=== PATIENT | female | born 1980 | race American Indian/Alaskan Native ===

== ENCOUNTER 2016-10-29 23:52 | Emergency (ER) | payer SELFPAY ==
[2016-10-30] MEDS ORDERED: NACL 0.9% 1000 ML 1,000 ML IV ONE (02:24)
[2016-10-30] MEDS ORDERED: VANCOMYCIN VIAL IV ONE (02:24)
[2016-10-30] MEDS ORDERED: MORPHINE IV ONE (02:25)
[2016-10-30] MEDS ORDERED: VANCOMYCIN PHARMACY TO DOSE IV SCH (03:00)
[2016-10-30] MEDS ORDERED: VANCOMYCIN 1,250 MG in NACL 0.9% 250ML 250 ML IV ONE (03:00)
[2016-10-30 03:10] LABS: Basophils % (Auto) 0.6 % (0.0-1.8); Eosinophils % (Auto) 0.6 % (0.0-4.3); Hematocrit 29.6 % (30.3-42.9); Mean Corpuscular HGB Conc 31 % (30-34); Platelet Count 183 K/mm3 (140-440); Red Blood Count 4.29 M/mm3 (3.65-5.03); Red Cell Distribution Width 17.3 % (13.2-15.2); White Blood Count 3.6 K/mm3 (4.5-11.0)
[2016-10-30 03:14] LABS: Mean Corpuscular Hemoglobin 21 pg (28-32); Mean Corpuscular Volume 69 fl (79-97)
[2016-10-30 03:18] LABS: Anion Gap 18 mmol/L; Blood Urea Nitrogen 16 mg/dL (7-17); Calcium 9.2 mg/dL (8.4-10.2); Carbon Dioxide 22 mmol/L (22-30); Chloride 100.4 mmol/L (98-107); Glucose 87 mg/dL (65-100); Sodium 136 mmol/L (137-145)
--- NOTE | 2016-10-30 03:19 | Emergency Department Report ---
ED ENT HPI - General Chief complaint: Earache Stated complaint: EAR PAIN Time Seen by Provider: 10/30/16 01:18 Source: patient Mode of arrival: Ambulatory Limitations: No Limitations - History of Present Illness Initial comments: 36-year-old female past medical history HIV-positive noncompliant with her HIV medicines presents with complaint of one week of worsening left-sided headache left-sided earache. Patient states that she is experiencing severe pain in her left ear canal has noticed some swelling and is having pain behind her ear. Denies any neck pain no photo or phonophobia no nausea or vomiting. Subjective chills. Patient states she stopped taking her HIV medicines several months ago cannot give me a clear reason why. Patient has not been following up for primary care. States she had been putting [id number] ear drops in her ear with minimal to no relief of her pain. Patient is awake alert and oriented 3 appears uncomfortable indicating that she has left-sided earache MD complaint: ear pain Onset/Timin -: week(s) Location: L ear Severity: moderate Severity scale (0 -10): 6 Quality: sharp Consistency: constant Associated Symptoms: tinnitus - Related Data Previous Rx's Medication Instructions Recorded Last Taken Type Amoxicillin/K Clav Tab [Augmentin 1 tab PO Q12HR #20 tab 10/30/16 Unknown Rx 875 mg] Ciprofloxacin HCl [Ciprofloxacin 500 mg PO Q12HR #20 tab 10/30/16 Unknown Rx TAB] HYDROcodone/APAP 5-325 [[place] 1 each PO Q6HR PRN #15 tablet 10/30/16 Unknown Rx 5/325] Ofloxacin 0.3% [Floxin Otic] 10 ml OT BID #1 bottle 10/30/16 Unknown Rx Allergies Allergy/AdvReac Type Severity Reaction Status Date / Time No Known Allergies Allergy Unverified 10/29/16 23:57 ED Dental HPI - General Chief complaint: Earache Stated complaint: EAR PAIN Time Seen by Provider: 10/30/16 01:18 Source: patient Mode of arrival: Ambulatory Limitations: No Limitations - Related Data Previous Rx's Medication Instructions Recorded Last Taken Type Amoxicillin/K Clav Tab [Augmentin 1 tab PO Q12HR #20 tab 10/30/16 Unknown Rx 875 mg] Ciprofloxacin HCl [Ciprofloxacin 500 mg PO Q12HR #20 tab 10/30/16 Unknown Rx TAB] HYDROcodone/APAP 5-325 [[place] 1 each PO Q6HR PRN #15 tablet 10/30/16 Unknown Rx 5/325] Ofloxacin 0.3% [Floxin Otic] 10 ml OT BID #1 bottle 10/30/16 Unknown Rx Allergies Allergy/AdvReac Type Severity Reaction Status Date / Time No Known Allergies Allergy Unverified 10/29/16 23:57 ED Review of Systems ROS: Stated complaint: EAR PAIN Other details as noted in HPI Constitutional: other (patient is HIV positive). denies: chills, fever Eyes: denies: eye pain, eye discharge, vision change ENT: ear pain (1 week of left-sided earache). denies: throat pain Respiratory: denies: cough, shortness of breath, wheezing Cardiovascular: denies: chest pain, palpitations Endocrine: no symptoms reported Gastrointestinal: denies: abdominal pain, nausea, diarrhea Genitourinary: denies: urgency, dysuria, discharge Musculoskeletal: denies: back pain, joint swelling, arthralgia Skin: denies: rash, lesions Neurological: denies: headache, weakness, paresthesias Psychiatric: denies: anxiety, depression Hematological/Lymphatic: denies: easy bleeding, easy bruising ED Past Medical Hx - Past Medical History Previous Medical History?: Yes Hx HIV: Yes - Surgical History Past Surgical History?: Yes Additional Surgical History: C-Sect X1 - Social History Smoking Status: Current Every Day Smoker Substance Use Type: None - Medications Home Medications: Home Medications Medication Instructions Recorded Confirmed Last Taken Type Amoxicillin/K Clav Tab [Augmentin 1 tab PO Q12HR #20 tab 10/30/16 Unknown Rx 875 mg] Ciprofloxacin HCl [Ciprofloxacin 500 mg PO Q12HR #20 tab 10/30/16 Unknown Rx TAB] HYDROcodone/APAP 5-325 [[place] 1 each PO Q6HR PRN #15 tablet 10/30/16 Unknown Rx 5/325] Ofloxacin 0.3% [Floxin Otic] 10 ml OT BID #1 bottle 10/30/16 Unknown Rx ED Physical Exam - General Limitations: No Limitations General appearance: alert, in no apparent distress - Head Head exam: Present: atraumatic, normocephalic - Eye Eye exam: Present: normal appearance, PERRL, EOMI - ENT ENT exam: Present: mucous membranes moist - Expanded ENT Exam Expanded TM/Canal exam: Erythema: Left TM (left ear canal is swollen and slightly indurated, tympanic membrane only slightly visible), Bulging: Left TM, Effusion : Left TM, Mastoid Tenderness: Left TM (patient has left-sided mastoid tenderness on clinical palpation) - Neck Neck exam: Present: normal inspection - Respiratory Respiratory exam: Present: normal lung sounds bilaterally. Absent: respiratory distress - Cardiovascular Cardiovascular Exam: Present: regular rate, normal rhythm. Absent: systolic murmur, diastolic murmur, rubs, gallop - GI/Abdominal GI/Abdominal exam: Present: soft, normal bowel sounds - Extremities Exam Extremities exam: Present: normal inspection - Back Exam Back exam: Present: normal inspection - Neurological Exam Neurological exam: Present: alert, oriented X3 - Psychiatric Psychiatric exam: Present: normal affect, normal mood - Skin Skin exam: Present: warm, dry, intact, normal color. Absent: rash ED Course Vital Signs 10/29/16 10/30/16 23:58 04:30 Temperature 97.6 F 97.9 F Pulse Rate 80 74 Respiratory 18 18 Rate Blood Pressure 134/75 Blood Pressure 97/57 [Left] O2 Sat by Pulse 99 98 Oximetry ED Medical Decision Making - Lab Data Result diagrams: 10/30/16 02:49 10/30/16 02:49 - Medical Decision Making A/P: left sided earache, left ear cellulitis/ otitis media/externa, perichondritis 1- I discussed case with Dr. Dinh, Dr. Kong (hospitalist) and [facility] completion supervisor political consultant 2- pts labs are not significantly abnormal, Ct w/ contrast not consistent with mastoiditis 3- As per ENT consultation without radiographic findings pt highly unlikely to have mastoiditis, recommending pseudomonal coverage and IV ABX given pts HIV status 4- pt received doses of vanomycin and cefepime while in ED 5- significant improvement of pain clinically on exam. 6- I will discharge the patient with 10 day course of augmentin and ciprofloxacin, this will cover gram+/- and pseudomonas. Topical ofloxacin drops 7- short course norco and naproxen 8- f/u with ENT and primary care 9- I gave pt strict instructions to return to the ED if her symptoms worsen, if she develops fever, chills, nausea, vomiting, discharge from the ear. I advised pt to return to the ED in 48-72 hours if she experiences worsening symptoms despite antibiotic use. i explained and stressed the importance of f/u with ENT to the pt. Pt expressed understanding of her diagnosis and importance of antibiotic use and f/u Critical care attestation.: If time is entered above; I have spent that time in minutes in the direct care of this critically ill patient, excluding procedure time. ED Disposition Clinical Impression: Perichondritis of left ear Otitis externa of left ear Qualifiers: Otitis externa type: diffuse Chronicity: acute Qualified Code(s): H60.312 - Diffuse otitis externa, left ear Otitis media Qualifiers: Otitis media type: suppurative Laterality: left Chronicity: acute Disposition: DISCHARGED TO HOME OR SELFCARE Is pt being admited?: No Does the pt Need Aspirin: No Condition: Stable Instructions: Otitis Externa (ED), Otitis Media (ED), Earache (ED) Additional Instructions: pt advised to call for f/u with ENT pt advised to return to ED in 48-72 hours if symptoms worsen Prescriptions: Amoxicillin/K Clav Tab [Augmentin 875 mg] 1 tab PO Q12HR #20 tab Ciprofloxacin HCl [Ciprofloxacin TAB] 500 mg PO Q12HR #20 tab HYDROcodone/APAP 5-325 [Penelope 5/325] 1 each PO Q6HR PRN #15 tablet PRN Reason: Pain Ofloxacin 0.3% [Floxin Otic] 10 ml OT BID #1 bottle Referrals: [facility] [Outside] - 3-5 Days [facility] [Provider Group] - 3-5 [facility] - 3-5 Days [facility] [Provider Group] - 3-5 Days BRIGIDO SIGALA MD [Staff Physician] - 3-5 Days Forms: Work/School Release Form(ED) Time of Disposition: 05:35
[2016-10-30] MEDS ORDERED: NACL ONE (03:27)
[2016-10-30 03:37] LABS: Erythrocyte Sedimentation Rate 37 mm/Hr (0-20)
--- NOTE | 2016-10-30 04:02 | Cat Scan Report ---
FINAL REPORT PROCEDURE: CT ORBIT/EAR/FOSSA W CON TECHNIQUE: Computerized axial tomography of the orbits was performed following the IV injection of iodinated nonionic contrast. HISTORY: ? left side mastoiditis, HIV , mastoid tenderness COMPARISON: No prior studies are available for comparison. FINDINGS: Bones and sinuses: There is mild opacification of the ethmoid and maxillary sinuses. Globes: Normal. Extraocular muscles: Normal. Optic nerves: Normal. Lacrimal glands: Normal. Abnormal enhancement: None. Other: The mastoid air cells are clear. Minimal cerumen identified in the external auditory canals. IMPRESSION: Mild opacification of the ethmoid and maxillary sinuses. The remainder of the study is normal.
[2016-10-30] MEDS ORDERED: MAXIPIME/NS 2 GM/100 ML 2 GM/100 ML BAG IV ONE (06:00)
[2016-10-30] MEDS ORDERED: NORCO 5/325 PO ONE (06:00)
[2016-10-30 07:03] VITALS: BP 114/73
[2016-10-30] MEDS ORDERED: VANCOMYCIN 750 MG in NACL 0.9% 250ML 250 ML IV SCH (12:00)
== END 2016-10-30 07:03 | disposition home or self-care (01) ==
LOC: ED 23:52
DX: H60.312 Diffuse otitis externa, left ear (principal); H61.002 Unspecified perichondritis of left external ear; F17.200 Nicotine dependence, unspecified, uncomplicated
CPT/HCPCS: 36415; 70481; 80048; 82140; 84703; 85025; 85652; 86140; 87040; 96361; 96365; 96367; 96375; 99284; J0692; J2270; J3370; J7030; J7050; Q9967

== ENCOUNTER 2017-03-24 19:34 | Emergency (ER) | payer SELFPAY ==
[2017-03-24] MEDS ORDERED: TYLENOL PO ONE (19:56)
[2017-03-24 20:25] LABS: Basophils % (Auto) 0.7 % (0.0-1.8); Eosinophils % (Auto) 0.1 % (0.0-4.3); Hematocrit 25.2 % (30.3-42.9); Hemoglobin 8.9 gm/dl (10.1-14.3); Mean Corpuscular HGB Conc 35 % (30-34); Mean Corpuscular Volume 73 fl (79-97); Platelet Count 184 K/mm3 (140-440); Red Blood Count 3.48 M/mm3 (3.65-5.03)
[2017-03-24 20:35] LABS: Mean Corpuscular Hemoglobin 26 pg (28-32)
[2017-03-24 20:41] LABS: Blood Urea Nitrogen 14 mg/dL (7-17); Calcium 8.9 mg/dL (8.4-10.2); Carbon Dioxide 19 mmol/L (22-30); Chloride 98.3 mmol/L (98-107); Glucose 109 mg/dL (65-100); Potassium 3.9 mmol/L (3.6-5.0)
[2017-03-24 20:54] LABS: Anion Gap 21 mmol/L; Sodium 134 mmol/L (137-145)
[2017-03-24 21:50] LABS: Bilirubin,Urine NEG (Negative); Blood,Urine SM (Negative); Ketones,Urine NEG (Negative); Leukocyte Esterase,Urine SM (Negative); Mucus,Urine FEW /HPF; Nitrite,Urine NEG (Negative); Protein,Urine <15 mg/dL mg/dL (Negative); Urobilinogen,Urine < 2.0 mg/dL (<2.0)
[2017-03-25] MEDS ORDERED: ROCEPHIN/NS 1 GM/50 ML 1 GM/50 ML BAG IV ONE (03:00)
[2017-03-25] MEDS ORDERED: NACL 0.9% 1000 ML 1,000 ML IV ONE (03:00)
[2017-03-25] MEDS ORDERED: MOTRIN PO ONE (03:36)
--- NOTE | 2017-03-25 04:05 | XRay Report ---
FINAL REPORT EXAM: XR CHEST ROUTINE 2V HISTORY: cough productive fever TECHNIQUE: Two views of the chest were obtained. There are no previous studies available for comparison. FINDINGS: The heart size and mediastinum appear normal. The lungs are clear. Pleural fluid is not seen. The bones and soft tissues are well maintained. IMPRESSION: Within normal limits.
--- NOTE | 2017-03-25 05:16 | Emergency Department Report ---
Upper Respiratory HPI - HPI Chief Complaint: Upper Respiratory Infection Stated Complaint: FEVER, HEADACHE, CHEST PAIN,BODY ACHE Time Seen by Provider: 03/25/17 02:58 URI Symptoms: Rhinorrhea: Yes, Sore Throat: Yes, Ear Pain: Yes, Cough: Yes, Shortness of Breath: No, Sick Contacts: No, Unable to Take Fluids: No, Urine Output Abnormal: No, Listless Behavior: No - Home Meds and Allergies Home Medications: Previous Rx's Medication Instructions Recorded Last Taken Type Amoxicillin/K Clav Tab [Augmentin 1 tab PO Q12HR #20 tab 10/30/16 Unknown Rx 875 mg] Ciprofloxacin HCl [Ciprofloxacin 500 mg PO Q12HR #20 tab 10/30/16 Unknown Rx TAB] HYDROcodone/APAP 5-325 [[place] 1 each PO Q6HR PRN #15 tablet 10/30/16 Unknown Rx 5/325] Ofloxacin 0.3% [Floxin Otic] 10 ml OT BID #1 bottle 10/30/16 Unknown Rx ALBUTEROL Inhaler [ProAir HFA 2 puff IH QID PRN #1 inhalation 03/25/17 Unknown Rx Inhaler] Azithromycin [Zithromax Z-EDWARD] 250 mg PO DAILY #6 tablet 03/25/17 Unknown Rx Fluticasone [Flonase] 1 spray NS QDAY #1 bottle 03/25/17 Unknown Rx Ibuprofen [Motrin 800 MG tab] 800 mg PO Q8HR PRN #30 tablet 03/25/17 Unknown Rx Allergies/Adverse Reactions: Allergies Allergy/AdvReac Type Severity Reaction Status Date / Time No Known Allergies Allergy Unverified 10/29/16 23:57 ED Review of Systems ROS: Stated complaint: FEVER, HEADACHE, CHEST PAIN,BODY ACHE Other details as noted in HPI Constitutional: chills, malaise. denies: fever Eyes: denies: eye pain, eye discharge, vision change ENT: throat pain, congestion. denies: ear pain, hearing loss, epistaxis Respiratory: cough, wheezing. denies: orthopnea, shortness of breath Cardiovascular: denies: chest pain, palpitations Endocrine: no symptoms reported Gastrointestinal: denies: abdominal pain, nausea, diarrhea Genitourinary: denies: urgency, dysuria, discharge Musculoskeletal: denies: back pain, joint swelling, arthralgia Skin: denies: rash, lesions Neurological: denies: headache, weakness, paresthesias Psychiatric: denies: anxiety, depression Hematological/Lymphatic: denies: easy bleeding, easy bruising ED Past Medical Hx - Past Medical History Previous Medical History?: Yes Hx HIV: Yes - Surgical History Past Surgical History?: Yes Additional Surgical History: C-Sect X1 - Social History Smoking Status: Never Smoker Substance Use Type: None - Medications Home Medications: Home Medications Medication Instructions Recorded Confirmed Last Taken Type Amoxicillin/K Clav Tab [Augmentin 1 tab PO Q12HR #20 tab 10/30/16 Unknown Rx 875 mg] Ciprofloxacin HCl [Ciprofloxacin 500 mg PO Q12HR #20 tab 10/30/16 Unknown Rx TAB] HYDROcodone/APAP 5-325 [[place] 1 each PO Q6HR PRN #15 tablet 10/30/16 Unknown Rx 5/325] Ofloxacin 0.3% [Floxin Otic] 10 ml OT BID #1 bottle 10/30/16 Unknown Rx ALBUTEROL Inhaler [ProAir HFA 2 puff IH QID PRN #1 inhalation 03/25/17 Unknown Rx Inhaler] Azithromycin [Zithromax Z-EDWARD] 250 mg PO DAILY #6 tablet 03/25/17 Unknown Rx Fluticasone [Flonase] 1 spray NS QDAY #1 bottle 03/25/17 Unknown Rx Ibuprofen [Motrin 800 MG tab] 800 mg PO Q8HR PRN #30 tablet 03/25/17 Unknown Rx ED Bronchiolitis Physical Exam - Exam General: Vital signs noted. No distress. Alert and acting appropriately. HEENT: Yes Pharyngeal Erythema, Yes Rhinorrhea, No Conjuctival Injection, No Dry Mucous Membranes Ear: Left TM Erythema, Neither TM Bulge, Neither EAC Discharge Neck: Yes Adenopathy, No Rigidity Lungs: Yes Clear Lung Sounds, Yes Good Air Exchange, Yes Cough, No Wheezes, No Stridor, No Nasal Flaring, No Retractions Heart: Yes Regular, No Murmur Abdomen: No Tenderness, No Peritoneal Signs, No Normal Bowel Sounds Skin: No Rash, No Eczema Neurologic: Alert and oriented, no deficits. Musculoskeletal: Unremarkable. ED Bronchiolitis Tests - Testing Testing: CXR: Normal/Negative Treatments - Treaments Treatment: Improved Albuterol ED Physical Exam - General Limitations: No Limitations ED Course Vital Signs 09/29/17 09/30/17 09/30/17 19:47 03:41 03:44 Temperature 100.6 F H 99.7 F H Pulse Rate 109 H 110 H Respiratory 22 18 18 Rate Blood Pressure 138/86 Blood Pressure 125/74 [Left] O2 Sat by Pulse 100 97 Oximetry ED Medical Decision Making - Lab Data Result diagrams: 03/24/17 20:12 03/24/17 20:12 - EKG Data EKG shows normal: axis, intervals, QRS complexes, ST-T waves Rate: tachycardia - EKG Data When compared to previous EKG there are: previous EKG unavailable Interpretation: normal EKG - Radiology Data Radiology results: report reviewed normal chest xray no infiltrates no opacities - Medical Decision Making pt is a 36 female HIV pos, who presents for generalized bodyache cough productive white, and generalized malaise, pt endorses intermittent fever no n/ v , no e at time. symptoms improved by nothing exam: patient is a/ox 3 ambulatory gait steady , ent: left ear erythema , nose: boggy bilater turbinater erythema no phayrnx: moderate eythema no exudate no lesion, uvula midline, no stidor, lungs clear bilat no wheezing, labs noted for: UA: normal CBC: normal , CMP normal , CXR: normal infiltrates no capacities, pt rx: NS 1000cc, rocephin 1 gm ivpb , pt advises symptoms are improve will dc to self with Azithromycin, albuterol inhaler, ibuprofen, Flonase, pt will follow up with IDP Doctor Lisseth Harvey in 2 days pt given strict instructions to return to emergency if symptoms worsen pt verbalized agreement and understanding of discharge plan. pt is currently a/o x 3 ambulatory gait steady with nad at this time. Critical care attestation.: If time is entered above; I have spent that time in minutes in the direct care of this critically ill patient, excluding procedure time. ED Disposition Clinical Impression: Bronchitis URI (upper respiratory infection) Qualifiers: URI type: acute nasopharyngitis (common cold) Qualified Code(s): J00 - Acute nasopharyngitis [common cold] Disposition: DC-01 TO HOME OR SELFCARE Is pt being admited?: No Does the pt Need Aspirin: No Condition: Good Instructions: Chronic Bronchitis (ED) Prescriptions: ALBUTEROL Inhaler [ProAir HFA Inhaler] 2 puff IH QID PRN #1 inhalation PRN Reason: Shortness Of Breath Azithromycin [Zithromax Z-EDWARD] 250 mg PO DAILY #6 tablet Fluticasone [Flonase] 1 spray NS QDAY #1 bottle Ibuprofen [Motrin 800 MG tab] 800 mg PO Q8HR PRN #30 tablet PRN Reason: Pain Referrals: PRIMARY CARE, [Primary Care Provider] - 3-5 Days Forms: Work/School Release Form(ED) Time of Disposition: 05:37
[2017-03-25 05:51] VITALS: BP 92/50
== END 2017-03-25 05:50 | disposition home or self-care (01) ==
LOC: ED 19:34
DX: J00 Acute nasopharyngitis [common cold] (principal); J40 Bronchitis, not specified as acute or chronic; Z21 Asymptomatic human immunodeficiency virus [HIV] infection status
CPT/HCPCS: 36415; 71020; 80048; 81001; 85025; 93005; 93010; 96365; 99284; J0696; J7030

== ENCOUNTER 2017-04-18 13:29 | Emergency (ER) | payer BC, OTHER ==
[2017-04-18 13:39] VITALS: BP 124/68
--- NOTE | 2017-04-18 13:54 | Emergency Department Report ---
ED ENT HPI - General Chief complaint: Earache Stated complaint: BILAT EAR PAIN/DRAINAGE Time Seen by Provider: 04/18/17 13:49 Source: patient Mode of arrival: Ambulatory Limitations: No Limitations - History of Present Illness Initial comments: patient is a 36 y/o female who presents due to bilateral ear pain x 1 day. Patient states that she noticed drainage from the bilateral ears. Patient denies any fever or chill, patient denies any injury to her ears. MD complaint: ear pain Onset/Timin -: days(s) Location: R ear, L ear Severity: severe Quality: aching Consistency: constant Improves with: none Worsens with: none Associated Symptoms: discharge from ear. denies: fever - Related Data Previous Rx's Medication Instructions Recorded Last Taken Type Amoxicillin/K Clav Tab [Augmentin 1 tab PO Q12HR #20 tab 10/30/16 Unknown Rx 875 mg] Ciprofloxacin HCl [Ciprofloxacin 500 mg PO Q12HR #20 tab 10/30/16 Unknown Rx TAB] HYDROcodone/APAP 5-325 [[place] 1 each PO Q6HR PRN #15 tablet 10/30/16 Unknown Rx 5/325] Ofloxacin 0.3% [Floxin Otic] 10 ml OT BID #1 bottle 10/30/16 Unknown Rx ALBUTEROL Inhaler [ProAir HFA 2 puff IH QID PRN #1 inhalation 03/25/17 Unknown Rx Inhaler] Azithromycin [Zithromax Z-EDWARD] 250 mg PO DAILY #6 tablet 03/25/17 Unknown Rx Fluticasone [Flonase] 1 spray NS QDAY #1 bottle 03/25/17 Unknown Rx Ibuprofen [Motrin 800 MG tab] 800 mg PO Q8HR PRN #30 tablet 03/25/17 Unknown Rx Ibuprofen 800 mg PO Q8HR PRN #30 tablet 04/18/17 Unknown Rx Neomy/Polymyx B/Hc (Otic) Soln 4 drops OTIC TID #1 bottle 04/18/17 Unknown Rx [Cortisporin (Otic) Soln] Allergies Allergy/AdvReac Type Severity Reaction Status Date / Time No Known Allergies Allergy Unverified 10/29/16 23:57 ED Dental HPI - General Chief complaint: Earache Stated complaint: BILAT EAR PAIN/DRAINAGE Time Seen by Provider: 04/18/17 13:49 Source: patient Mode of arrival: Ambulatory Limitations: No Limitations - Related Data Previous Rx's Medication Instructions Recorded Last Taken Type Amoxicillin/K Clav Tab [Augmentin 1 tab PO Q12HR #20 tab 10/30/16 Unknown Rx 875 mg] Ciprofloxacin HCl [Ciprofloxacin 500 mg PO Q12HR #20 tab 10/30/16 Unknown Rx TAB] HYDROcodone/APAP 5-325 [[place] 1 each PO Q6HR PRN #15 tablet 10/30/16 Unknown Rx 5/325] Ofloxacin 0.3% [Floxin Otic] 10 ml OT BID #1 bottle 10/30/16 Unknown Rx ALBUTEROL Inhaler [ProAir HFA 2 puff IH QID PRN #1 inhalation 03/25/17 Unknown Rx Inhaler] Azithromycin [Zithromax Z-EDWARD] 250 mg PO DAILY #6 tablet 03/25/17 Unknown Rx Fluticasone [Flonase] 1 spray NS QDAY #1 bottle 03/25/17 Unknown Rx Ibuprofen [Motrin 800 MG tab] 800 mg PO Q8HR PRN #30 tablet 03/25/17 Unknown Rx Ibuprofen 800 mg PO Q8HR PRN #30 tablet 04/18/17 Unknown Rx Neomy/Polymyx B/Hc (Otic) Soln 4 drops OTIC TID #1 bottle 04/18/17 Unknown Rx [Cortisporin (Otic) Soln] Allergies Allergy/AdvReac Type Severity Reaction Status Date / Time No Known Allergies Allergy Unverified 10/29/16 23:57 ED Review of Systems ROS: Stated complaint: BILAT EAR PAIN/DRAINAGE Other details as noted in HPI Comment: All other systems reviewed and negative Constitutional: no symptoms reported. denies: chills, diaphoresis, fever, malaise, weakness ENT: ear pain. denies: throat pain, dental pain, hearing loss, epistaxis, congestion, other Respiratory: no symptoms reported ED Past Medical Hx - Past Medical History Previous Medical History?: Yes Hx HIV: Yes - Surgical History Past Surgical History?: Yes Additional Surgical History: C-Sect X1 - Social History Smoking Status: Current Every Day Smoker Substance Use Type: None - Medications Home Medications: Home Medications Medication Instructions Recorded Confirmed Last Taken Type Amoxicillin/K Clav Tab [Augmentin 1 tab PO Q12HR #20 tab 10/30/16 Unknown Rx 875 mg] Ciprofloxacin HCl [Ciprofloxacin 500 mg PO Q12HR #20 tab 10/30/16 Unknown Rx TAB] HYDROcodone/APAP 5-325 [[place] 1 each PO Q6HR PRN #15 tablet 10/30/16 Unknown Rx 5/325] Ofloxacin 0.3% [Floxin Otic] 10 ml OT BID #1 bottle 10/30/16 Unknown Rx ALBUTEROL Inhaler [ProAir HFA 2 puff IH QID PRN #1 inhalation 03/25/17 Unknown Rx Inhaler] Azithromycin [Zithromax Z-EDWARD] 250 mg PO DAILY #6 tablet 03/25/17 Unknown Rx Fluticasone [Flonase] 1 spray NS QDAY #1 bottle 03/25/17 Unknown Rx Ibuprofen [Motrin 800 MG tab] 800 mg PO Q8HR PRN #30 tablet 03/25/17 Unknown Rx Ibuprofen 800 mg PO Q8HR PRN #30 tablet 04/18/17 Unknown Rx Neomy/Polymyx B/Hc (Otic) Soln 4 drops OTIC TID #1 bottle 04/18/17 Unknown Rx [Cortisporin (Otic) Soln] ED Physical Exam - General Limitations: No Limitations General appearance: alert, in no apparent distress - Head Head exam: Present: atraumatic, normocephalic - Expanded ENT Exam Expanded TM/Canal exam: Canal Discharge: Left TM, Canal Tenderness: Right TM, Left TM - Neurological Exam Neurological exam: Present: alert, oriented X3 - Psychiatric Psychiatric exam: Present: normal affect, normal mood - Skin Skin exam: Present: warm, dry, intact ED Course Vital Signs 04/18/17 13:37 Temperature 98.5 F Pulse Rate 94 H Respiratory 16 Rate Blood Pressure 124/68 O2 Sat by Pulse 100 Oximetry ED Medical Decision Making - Medical Decision Making patient was in NAD, patient had drainage in the left ear canal with canal swelling, left ear TM was not visualized due to swelling and drainage. right ear canal was normal, normal right TM. patient was prescribed cortisporin ear drops and was told to follow up with an ENT specialist if symptoms did not improve. - Differential Diagnosis otits externa, otitis media, mastoiditis. Critical care attestation.: If time is entered above; I have spent that time in minutes in the direct care of this critically ill patient, excluding procedure time. ED Disposition Clinical Impression: Otitis externa Qualifiers: Otitis externa type: unspecified type Chronicity: acute Laterality: left Qualified Code(s): H60.502 - Unspecified acute noninfective otitis externa, left ear Disposition: TO HOME OR SELFCARE Is pt being admited?: No Does the pt Need Aspirin: No Condition: Good Instructions: Otitis Externa (ED) Additional Instructions: apply cortisporin in left ear, apply 4 drops three times a day. take ibuprofen as prescribed Prescriptions: Ibuprofen 800 mg PO Q8HR PRN #30 tablet PRN Reason: Pain Neomy/Polymyx B/Hc (Otic) Soln [Cortisporin (Otic) Soln] 4 drops OTIC TID #1 bottle Referrals: PRIMARY CARE, [Primary Care Provider] - 3-5 Days Time of Disposition: 13:55
== END 2017-04-18 15:08 | disposition home or self-care (01) ==
LOC: ED 13:29
DX: H60.502 Unspecified acute noninfective otitis externa, left ear (principal); F17.200 Nicotine dependence, unspecified, uncomplicated
CPT/HCPCS: 99282

== ENCOUNTER 2017-05-30 12:14 | Emergency (ER) | payer BC ==
--- NOTE | 2017-05-30 16:28 | Emergency Department Report ---
ED ENT HPI - General Chief complaint: Earache Stated complaint: BILATERAL EAR PAIN Time Seen by Provider: 05/30/17 14:19 Source: patient Mode of arrival: Ambulatory Limitations: No Limitations - History of Present Illness Initial comments: This is a 36-year-old female nontoxic, well nourished in appearance, no acute signs of distress presents to the ED with c/o of chronic intermittent bilateral ear pain. Patient stated she was seen in the ED 2 times before and was diagnosed with otitis media and externa and recevied antibiotics with symptoms resolved. Patient stated she did follow up with ENT doctor which patient stated ENT doctor stated the symptoms have improved. Patient today presents again with similar symptoms of left ear discharge and pain and right ear ache. Patient denies any decreased hearing, fever, chills, nausea, vomiting, chest pain or shortness of breath. Denies headache or stiff neck. Patient denies any allergies. PMH includes HIV. Patient stated she is not complaint with her HIV medications. MD complaint: ear pain -: days(s) (1) Location: R ear, L ear Severity: mild Severity scale (0 -10): 8 Quality: aching Consistency: constant Improves with: none Worsens with: none Associated Symptoms: discharge from ear. denies: fever, cough, gum swelling, toothache, pain with swallowing, sore throat, tinnitus, hearing loss, rhinorrhea - Related Data Previous Rx's Medication Instructions Recorded Last Taken Type Amoxicillin/K Clav Tab [Augmentin 1 tab PO Q12HR #20 tab 10/30/16 Unknown Rx 875 mg] Ciprofloxacin HCl [Ciprofloxacin 500 mg PO Q12HR #20 tab 10/30/16 Unknown Rx TAB] HYDROcodone/APAP 5-325 [[place] 1 each PO Q6HR PRN #15 tablet 10/30/16 Unknown Rx 5/325] Ofloxacin 0.3% [Floxin Otic] 10 ml OT BID #1 bottle 10/30/16 Unknown Rx ALBUTEROL Inhaler [ProAir HFA 2 puff IH QID PRN #1 inhalation 03/25/17 Unknown Rx Inhaler] Azithromycin [Zithromax Z-EDWARD] 250 mg PO DAILY #6 tablet 03/25/17 Unknown Rx Fluticasone [Flonase] 1 spray NS QDAY #1 bottle 03/25/17 Unknown Rx Ibuprofen [Motrin 800 MG tab] 800 mg PO Q8HR PRN #30 tablet 03/25/17 Unknown Rx Ibuprofen 800 mg PO Q8HR PRN #30 tablet 04/18/17 Unknown Rx Neomy/Polymyx B/Hc (Otic) Soln 4 drops OTIC TID #1 bottle 04/18/17 Unknown Rx [Cortisporin (Otic) Soln] Amoxicillin/K Clav Tab [Augmentin 1 tab PO Q12HR #20 tab 05/30/17 Unknown Rx 875 mg] Ofloxacin 0.3% [Floxin Otic] 10 ml OT BID 7 Days bottle 05/30/17 Unknown Rx Sulfamethoxazole/Trimethoprim 1 each PO BID #14 tablet 05/30/17 Unknown Rx [Bactrim DS TAB] Allergies Allergy/AdvReac Type Severity Reaction Status Date / Time No Known Allergies Allergy Unverified 10/29/16 23:57 ED Dental HPI - General Chief complaint: Earache Stated complaint: BILATERAL EAR PAIN Time Seen by Provider: 05/30/17 14:19 Source: patient Mode of arrival: Ambulatory Limitations: No Limitations - Related Data Previous Rx's Medication Instructions Recorded Last Taken Type Amoxicillin/K Clav Tab [Augmentin 1 tab PO Q12HR #20 tab 10/30/16 Unknown Rx 875 mg] Ciprofloxacin HCl [Ciprofloxacin 500 mg PO Q12HR #20 tab 10/30/16 Unknown Rx TAB] HYDROcodone/APAP 5-325 [[place] 1 each PO Q6HR PRN #15 tablet 10/30/16 Unknown Rx 5/325] Ofloxacin 0.3% [Floxin Otic] 10 ml OT BID #1 bottle 10/30/16 Unknown Rx ALBUTEROL Inhaler [ProAir HFA 2 puff IH QID PRN #1 inhalation 03/25/17 Unknown Rx Inhaler] Azithromycin [Zithromax Z-EDWARD] 250 mg PO DAILY #6 tablet 03/25/17 Unknown Rx Fluticasone [Flonase] 1 spray NS QDAY #1 bottle 03/25/17 Unknown Rx Ibuprofen [Motrin 800 MG tab] 800 mg PO Q8HR PRN #30 tablet 03/25/17 Unknown Rx Ibuprofen 800 mg PO Q8HR PRN #30 tablet 04/18/17 Unknown Rx Neomy/Polymyx B/Hc (Otic) Soln 4 drops OTIC TID #1 bottle 04/18/17 Unknown Rx [Cortisporin (Otic) Soln] Amoxicillin/K Clav Tab [Augmentin 1 tab PO Q12HR #20 tab 05/30/17 Unknown Rx 875 mg] Ofloxacin 0.3% [Floxin Otic] 10 ml OT BID 7 Days bottle 05/30/17 Unknown Rx Sulfamethoxazole/Trimethoprim 1 each PO BID #14 tablet 05/30/17 Unknown Rx [Bactrim DS TAB] Allergies Allergy/AdvReac Type Severity Reaction Status Date / Time No Known Allergies Allergy Unverified 10/29/16 23:57 ED Review of Systems ROS: Stated complaint: BILATERAL EAR PAIN Other details as noted in HPI Constitutional: denies: chills, fever Eyes: denies: eye pain, eye discharge, vision change ENT: ear pain. denies: throat pain Respiratory: denies: cough, shortness of breath, wheezing Cardiovascular: denies: chest pain, palpitations Endocrine: no symptoms reported Gastrointestinal: denies: abdominal pain, nausea, diarrhea Genitourinary: denies: urgency, dysuria, discharge Musculoskeletal: denies: back pain, joint swelling, arthralgia Skin: denies: rash, lesions Neurological: denies: headache, weakness, paresthesias Psychiatric: denies: anxiety, depression Hematological/Lymphatic: denies: easy bleeding, easy bruising ED Past Medical Hx - Past Medical History Hx HIV: Yes - Surgical History Additional Surgical History: C-Sect X1 - Social History Smoking Status: Current Every Day Smoker Substance Use Type: None - Medications Home Medications: Home Medications Medication Instructions Recorded Confirmed Last Taken Type Amoxicillin/K Clav Tab [Augmentin 1 tab PO Q12HR #20 tab 10/30/16 Unknown Rx 875 mg] Ciprofloxacin HCl [Ciprofloxacin 500 mg PO Q12HR #20 tab 10/30/16 Unknown Rx TAB] HYDROcodone/APAP 5-325 [[place] 1 each PO Q6HR PRN #15 tablet 10/30/16 Unknown Rx 5/325] Ofloxacin 0.3% [Floxin Otic] 10 ml OT BID #1 bottle 10/30/16 Unknown Rx ALBUTEROL Inhaler [ProAir HFA 2 puff IH QID PRN #1 inhalation 03/25/17 Unknown Rx Inhaler] Azithromycin [Zithromax Z-EDWARD] 250 mg PO DAILY #6 tablet 03/25/17 Unknown Rx Fluticasone [Flonase] 1 spray NS QDAY #1 bottle 03/25/17 Unknown Rx Ibuprofen [Motrin 800 MG tab] 800 mg PO Q8HR PRN #30 tablet 03/25/17 Unknown Rx Ibuprofen 800 mg PO Q8HR PRN #30 tablet 04/18/17 Unknown Rx Neomy/Polymyx B/Hc (Otic) Soln 4 drops OTIC TID #1 bottle 04/18/17 Unknown Rx [Cortisporin (Otic) Soln] Amoxicillin/K Clav Tab [Augmentin 1 tab PO Q12HR #20 tab 05/30/17 Unknown Rx 875 mg] Ofloxacin 0.3% [Floxin Otic] 10 ml OT BID 7 Days bottle 05/30/17 Unknown Rx Sulfamethoxazole/Trimethoprim 1 each PO BID #14 tablet 05/30/17 Unknown Rx [Bactrim DS TAB] ED Physical Exam - General Limitations: No Limitations General appearance: alert, in no apparent distress - Head Head exam: Present: atraumatic, normocephalic, normal inspection - Eye Eye exam: Present: normal appearance, PERRL, EOMI. Absent: scleral icterus, conjunctival injection, nystagmus, periorbital swelling, periorbital tenderness Pupils: Present: normal accommodation - ENT ENT exam: Present: normal exam, normal orophraynx, mucous membranes moist. Absent: TM's normal bilaterally, normal external ear exam - Expanded ENT Exam Expanded Ear exam: Present: normal external inspection TM/Canal exam: Erythema: Right TM, Left TM, Bulging: Right TM, Left TM, Canal Discharge: Left TM Mouth exam: Present: normal external inspection, tongue normal. Absent: drooling, trismus, muffled voice, tongue elevation, laceration Teeth exam: Present: normal inspection Throat exam: Positive: normal inspection. Negative: tonsillar erythema, tonsillomegaly, tonsillar exudate, R peritonsillar mass, L peritonsillar mass - Neck Neck exam: Present: normal inspection, full ROM. Absent: tenderness, meningismus, lymphadenopathy, thyromegaly - Respiratory Respiratory exam: Present: normal lung sounds bilaterally. Absent: respiratory distress, wheezes, rales, rhonchi, stridor, chest wall tenderness, accessory muscle use, decreased breath sounds, prolonged expiratory - Cardiovascular Cardiovascular Exam: Present: regular rate, normal rhythm, normal heart sounds. Absent: bradycardia, tachycardia, irregular rhythm, systolic murmur, diastolic murmur, rubs, gallop - GI/Abdominal GI/Abdominal exam: Present: soft, normal bowel sounds. Absent: distended, tenderness, guarding, rebound, rigid, diminished bowel sounds - Rectal Rectal exam: Present: deferred - Extremities Exam Extremities exam: Present: normal inspection, full ROM, normal capillary refill. Absent: tenderness, pedal edema, joint swelling, calf tenderness - Back Exam Back exam: Present: normal inspection, full ROM. Absent: tenderness, CVA tenderness (R), CVA tenderness (L), muscle spasm, paraspinal tenderness, vertebral tenderness, rash noted - Neurological Exam Neurological exam: Present: alert, oriented X3, CN II-XII intact, normal gait, reflexes normal - Psychiatric Psychiatric exam: Present: normal affect, normal mood - Skin Skin exam: Present: warm, dry, intact, normal color. Absent: rash ED Course Vital Signs 05/30/17 12:41 Temperature 98.2 F Pulse Rate 86 Respiratory 18 Rate Blood Pressure 116/78 O2 Sat by Pulse 100 Oximetry - Reevaluation(s) Reevaluation #1: 05/30/17 16:43 Patient is speaking in full sentences with no signs of distress noted. - Consultations Consultation #1: 05/30/17 16:43 Dr. Barlow has been consulted about patient physical exam, history and agrees to the plan of care in the ED. ED Medical Decision Making - Lab Data Result diagrams: 05/30/17 17:00 05/30/17 17:00 - Medical Decision Making This is a 36-year-old female that presents with right otitis media and left otits extrna. Patient is stable and was examiend by me. Dr. Barlow has been consulted and agrees to the plan of care in the ED and d/c f/u. There is no mastoid tenderness. No decreased hearing. Labs does not indicate sepsis. Patient received Rocephin 1 g IV. Patient is discharged with Bactrim, Augmentin , and Floxin drops. Patient was instructed Follow-up with a primary care doctor /ENT doctor in 24 hours or if symptoms worsen and continue return to emergency room as soon as possible. At time time of discharge, the patient does not seem toxic or ill in appearance. No acute signs of distress noted. Patient agrees to discharge treatment plan of care. No further questions noted by the patient. Ear culture sent and pending. Critical care attestation.: If time is entered above; I have spent that time in minutes in the direct care of this critically ill patient, excluding procedure time. ED Disposition Clinical Impression: Otitis media Qualifiers: Otitis media type: suppurative Chronicity: chronic Laterality: right Suppurative otitis media location: unspecified location Qualified Code(s): H66.3X1 - Other chronic suppurative otitis media, right ear Otitis externa Qualifiers: Otitis externa type: unspecified type Chronicity: chronic Laterality: left Qualified Code(s): H60.62 - Unspecified chronic otitis externa, left ear Disposition: - TO HOME OR SELFCARE Is pt being admited?: No Does the pt Need Aspirin: No Condition: Stable Instructions: Otitis Externa (ED), Otitis Media (ED) Additional Instructions: Follow-up with a primary care doctor/ENT doctor in 24 hours or if symptoms worsen and continue return to emergency room as soon as possible. Prescriptions: Amoxicillin/K Clav Tab [Augmentin 875 mg] 1 tab PO Q12HR #20 tab Ofloxacin 0.3% [Floxin Otic] 10 ml OT BID 7 Days bottle Sulfamethoxazole/Trimethoprim [Bactrim DS TAB] 1 each PO BID #14 tablet Referrals: PRIMARY CARE, [Primary Care Provider] - 3-5 Days KIMMY ARZOLA MD [Staff Physician] - 3-5 Days [facility] [Outside] - 3-5 Days [facility] [Outside] - 3-5 Days Forms: Work/School Release Form(ED)
[2017-05-30 17:23] LABS: Basophils % (Auto) 0.3 % (0.0-1.8); Eosinophils % (Auto) 0.2 % (0.0-4.3); Hematocrit 28.7 % (30.3-42.9); Hemoglobin 8.8 gm/dl (10.1-14.3); Mean Corpuscular HGB Conc 31 % (30-34); Mean Corpuscular Hemoglobin 20 pg (28-32); Mean Corpuscular Volume 66 fl (79-97); Platelet Count 225 K/mm3 (140-440); Red Blood Count 4.33 M/mm3 (3.65-5.03); Red Cell Distribution Width 17.8 % (13.2-15.2); White Blood Count 3.9 K/mm3 (4.5-11.0)
[2017-05-30 17:42] LABS: Alanine Aminotransferase 12 units/L (7-56); Albumin 4.5 g/dL (3.9-5); Albumin/Globulin Ratio 1.4 %; Alkaline Phosphatase 61 units/L (35-129); Anion Gap 20 mmol/L; BUN/Creatinine Ratio 23; Blood Urea Nitrogen 9 mg/dL (7-17); Calcium 8.9 mg/dL (8.4-10.2); Carbon Dioxide 22 mmol/L (22-30); Chloride 100.6 mmol/L (98-107); Erythrocyte Sedimentation Rate 39 mm/Hr (0-20); Glucose 92 mg/dL (65-100); Potassium 3.9 mmol/L (3.6-5.0); Sodium 139 mmol/L (137-145); Total Protein 7.7 g/dL (6.3-8.2)
[2017-05-30 17:44] LABS: Bilirubin,Direct < 0.2 mg/dL (0-0.2)
[2017-05-30 17:45] LABS: C-Reactive Protein < 0.03 mg/dL (0.00-1.30)
[2017-05-30] MEDS ORDERED: XYLOCAINE 1% MPF 5 mL INFILTRATI ONE (17:55)
[2017-05-30] MEDS ORDERED: ROCEPHIN IM ONE (17:55)
[2017-05-30] MEDS ORDERED: ROCEPHIN/NS 1 GM/50 ML 1 GM/50 ML BAG IV ONE (17:56)
[2017-05-30 18:10] LABS: Bilirubin,Urine NEG (Negative); Blood,Urine MOD (Negative); Ketones,Urine NEG (Negative); Leukocyte Esterase,Urine TR (Negative); Mucus,Urine 1+ /HPF; Nitrite,Urine NEG (Negative); Protein,Urine <15 mg/dL mg/dL (Negative); Urobilinogen,Urine < 2.0 mg/dL (<2.0)
[2017-05-30] MEDS ORDERED: cefTRIAXone 1 GM in NACL 0.9% 20 ML IV ONE (18:15)
[2017-05-30] MEDS ORDERED: MOTRIN PO ONE ×2 (18:45)
[2017-05-30 18:59] VITALS: BP 117/76
== END 2017-05-30 19:02 | disposition home or self-care (01) ==
LOC: ED 12:14
DX: H66.3X1 Other chronic suppurative otitis media, right ear (principal); H60.62 Unspecified chronic otitis externa, left ear; F17.200 Nicotine dependence, unspecified, uncomplicated; Z21 Asymptomatic human immunodeficiency virus [HIV] infection status
CPT/HCPCS: 36415; 80048; 80074; 81001; 82140; 85025; 85652; 86140; 86850; 86900; 86901; 87076; 87116; 87186; 96374; 99283; J0696

== ENCOUNTER 2017-07-11 14:12 | Emergency (ER) | payer BC ==
[2017-07-11] MEDS ORDERED: TYLENOL ONE ×2 (14:34→14:35)
[2017-07-11 14:38] VITALS: BP 110/68
[2017-07-11] MEDS ORDERED: NACL 0.9% 500 ML 500 ML IV ONE (14:38)
[2017-07-11 16:20] LABS: Basophils % (Auto) 0.5 % (0.0-1.8); Hematocrit 25.5 % (30.3-42.9); Hemoglobin 7.8 gm/dl (10.1-14.3); Lymphocytes % (Auto) 14.3 % (13.4-35.0); Mean Corpuscular HGB Conc 31 % (30-34); Monocytes # (Auto) 0.4 K/mm3 (0.0-0.8); Monocytes % (Auto) 5.8 % (0.0-7.3); Platelet Count 182 K/mm3 (140-440); Red Blood Count 3.91 M/mm3 (3.65-5.03); Red Cell Distribution Width 17.7 % (13.2-15.2)
[2017-07-11 16:29] LABS: INR 0.95 (0.87-1.13)
[2017-07-11 16:32] LABS: Mean Corpuscular Hemoglobin 20 pg (28-32); Mean Corpuscular Volume 65 fl (79-97)
[2017-07-11 16:37] LABS: Alanine Aminotransferase 7 units/L (7-56); Albumin 4.1 g/dL (3.9-5); BUN/Creatinine Ratio 16; Blood Urea Nitrogen 8 mg/dL (7-17); Calcium 8.9 mg/dL (8.4-10.2); Hemolysis Index 0
[2017-07-11] MEDS ORDERED: TYLENOL PO ONE (17:20)
--- NOTE | 2017-07-11 20:17 | XRay Report ---
FINAL REPORT EXAM: XR CHEST ROUTINE 2V HISTORY: fever,cough,h/o PCP r/t HIV TECHNIQUE: Two views of the chest Comparison: 03/25/2017 FINDINGS: Normal heart size. Prominent bilateral nipple shadows. Ill-defined 1.5 centimeter density left lung base adjacent to the nipple may represent early calcification of the anterior 6th rib chondral margin but a lung abnormality cannot be excluded. Patient is young for chondral calcification. There is mild lingular atelectasis. There are no pleural effusions. The imaged axial skeleton is unremarkable. IMPRESSION: Abnormal chest x-ray with developing 1.5 centimeter density in the left lung base in the region of the nipple. Recommend CT chest. Prominent nipple shadows bilaterally.
== END 2017-07-11 20:40 | disposition left against medical advice (07) ==
LOC: ED 14:12
DX: R05 Cough (principal); R50.9 Fever, unspecified; Z53.21 Procedure and treatment not carried out due to patient leaving prior to being seen by health care provider
CPT/HCPCS: 36415; 71046; 80053; 82140; 85025; 85610; 87040; 87400; 93005; 93010

== ENCOUNTER 2018-01-08 12:26 | Emergency (ER) | payer BC ==
[2018-01-08 12:44] VITALS: BP 129/85
[2018-01-08] MEDS ORDERED: NORCO 5/325 ONE (16:50)
--- NOTE | 2018-01-08 16:52 | Emergency Department Report ---
Minor Respiratory - HPI Chief Complaint: Upper Respiratory Infection Stated Complaint: COUGH,CHILLS HIGH FEVER,CHEST PAIN, EAR ACHE Time Seen by Provider: 01/08/18 14:53 Duration: 2 Days Pain Location: Nose (congestion) Severity: moderate Minor Respiratory: Yes Rhinorrhea, Yes Able to Tolerate Fluids, Yes Ear Pain ( right ear pain), Yes Cough, Yes Fever, No Sore Throat, No Sick Contacts (nephew was sick with nxgb-wblb-rkm-mouth last week), No Hemoptysis, No Chest Pain, No Shortness of Breath Other History: This is a 37-year-old female presents with fever, cough , chest pain for 2 days. Patient has a history of HIV and currently off medication. Patient reported just keep in her nephew last week shortly after being diagnosed with eijp-gahk-dkw-mouth disease. Patient states she has been taking an wvuu-qgm-nliiuzs cold and flu medication but unable to get out of [facility] yesterday. The work and started having right ear pain and congestion and decided to come in for evaluation. There is chest tightness with cough and sinus pressure. ED Review of Systems ROS: Stated complaint: COUGH,CHILLS HIGH FEVER,CHEST PAIN, EAR ACHE Other details as noted in HPI Constitutional: fever. denies: chills ENT: ear pain (right ear pain), congestion. denies: throat pain, dental pain, hearing loss, epistaxis Respiratory: cough. denies: orthopnea, shortness of breath, wheezing Cardiovascular: denies: chest pain (chest chest with coughing), palpitations, dyspnea on exertion, edema, syncope Gastrointestinal: denies: abdominal pain, nausea, vomiting, diarrhea Neurological: headache. denies: weakness, numbness, paresthesias Psychiatric: denies: anxiety, depression ED Past Medical Hx - Past Medical History Hx HIV: Yes Additional medical history: pcp - Surgical History Additional Surgical History: C-Sect X1 - Social History Smoking Status: Current Every Day Smoker Substance Use Type: None - Medications Home Medications: Home Medications Medication Instructions Recorded Confirmed Last Taken Type Amoxicillin/K Clav Tab [Augmentin 1 tab PO Q12HR #20 tab 10/30/16 Unknown Rx 875 mg] Ciprofloxacin HCl [Ciprofloxacin 500 mg PO Q12HR #20 tab 10/30/16 Unknown Rx TAB] HYDROcodone/APAP 5-325 [[place] 1 each PO Q6HR PRN #15 tablet 10/30/16 Unknown Rx 5/325] Ofloxacin 0.3% [Floxin Otic] 10 ml OT BID #1 bottle 10/30/16 Unknown Rx ALBUTEROL Inhaler [ProAir HFA 2 puff IH QID PRN #1 inhalation 03/25/17 Unknown Rx Inhaler] Azithromycin [Zithromax Z-EDWARD] 250 mg PO DAILY #6 tablet 03/25/17 Unknown Rx Fluticasone [Flonase] 1 spray NS QDAY #1 bottle 03/25/17 Unknown Rx Ibuprofen [Motrin 800 MG tab] 800 mg PO Q8HR PRN #30 tablet 03/25/17 Unknown Rx Ibuprofen 800 mg PO Q8HR PRN #30 tablet 04/18/17 Unknown Rx Neomy/Polymyx B/Hc (Otic) Soln 4 drops OTIC TID #1 bottle 04/18/17 Unknown Rx [Cortisporin (Otic) Soln] Amoxicillin/K Clav Tab [Augmentin 1 tab PO Q12HR #20 tab 05/30/17 Unknown Rx 875 mg] Ofloxacin 0.3% [Floxin Otic] 10 ml OT BID 7 Days bottle 05/30/17 Unknown Rx Sulfamethoxazole/Trimethoprim 1 each PO BID #14 tablet 05/30/17 Unknown Rx [Bactrim DS TAB] Amoxicillin/Potassium Clav 1 each PO BID 5 Days #10 tablet 01/08/18 Unknown Rx [Augmentin 875-125 Tablet] Fluticasone [Flonase] 1 spray NS QDAY #1 bottle 01/08/18 Unknown Rx Guaifenesin/Pseudoephedrne HCl 1 tab PO BID #10 tab 01/08/18 Unknown Rx [Mucinex D ER 1,200-120 mg Tab] Ibuprofen [Motrin 800 MG tab] 800 mg PO Q8HR PRN #20 tablet 01/08/18 Unknown Rx Minor Respiratory Exam - Exam General: Vital signs noted. No distress. Alert and acting appropriately. HEENT: Yes Pharyngeal Erythema, Yes Moist Mucous Membranes, Yes Rhinorrhea ( turbinates mildly congested with clear discharge), Yes Frontal Tenderness, No Pharyngeal Exudates, No Conjuctival Injection, No Maxillary Tenderness Ear: Right TM Erythema, Right EAC Pain, Neither TM Bulge, Neither EAC Discharge Neck: Yes Supple, No Adenopathy Lungs: Yes Good Air Exchange, Yes Cough, No Wheezes, No Ronchi, No Stridor, No Labored Respirations, No Retractions, No Use of Accessory Muscles, No Other Abnormal Lung Sounds Heart: Yes Regular, No Murmur Abdomen: Yes Normal Bowel Sounds, No Tenderness, No Peritoneal Signs Skin: No Rash, No Edema Neurologic: Alert and oriented, no deficits. Musculoskeletal: Unremarkable. ED Course Vital Signs 01/08/18 12:40 Temperature 98.3 F Pulse Rate 95 H Respiratory 18 Rate Blood Pressure 129/85 O2 Sat by Pulse 97 Oximetry ED Medical Decision Making - Medical Decision Making 37 y.o. female that presents with chest pain, cough, fever for 2 days. History of HIV and currently off medication. Patient examined by me and stable. Patient has slight distress, given [place] 5/325 mg by mouth once in the ER for pain. Vitals normal. Chest xray has been obtained and dictated by radiologist. No acute cardiopulmonary findings. No labs obtained. Start Augmentin, ibuprofen, guaifenesin DM, and Flonase for sinusitis. Reviewed results with patient. Discharged home stable. Encouraged to do supportive care for URI. Follow up with Primary Care Provider in 2-3 days. Critical care attestation.: If time is entered above; I have spent that time in minutes in the direct care of this critically ill patient, excluding procedure time. ED Disposition Clinical Impression: Acute pain of right ear Acute frontal sinusitis Qualifiers: Recurrence: non-recurrent Qualified Code(s): J01.10 - Acute frontal sinusitis, unspecified Disposition: - TO HOME OR SELFCARE Is pt being admited?: No Does the pt Need Aspirin: No Condition: Stable Instructions: Sinusitis (ED), Upper Respiratory Infection (ED) Additional Instructions: Increase fluid intake and rest. Wash hands frequently. Continue taking tylenol or ibuprofen to control fever. F/U with Primary Care Provider. Return to ER if fever, SOB, or difficulty breathing after 48 hours of supportive care. Prescriptions: Amoxicillin/Potassium Clav [Augmentin 875-125 Tablet] 1 each PO BID 5 Days #10 tablet Fluticasone [Flonase] 1 spray NS QDAY #1 bottle Guaifenesin/Pseudoephedrne HCl [Mucinex D ER 1,200-120 mg Tab] 1 tab PO BID #10 tab Ibuprofen [Motrin 800 MG tab] 800 mg PO Q8HR PRN #20 tablet PRN Reason: Pain , Severe (7-10) Referrals: ISABEL MATTA MD [Staff Physician] - 3-5 Days [facility] [Provider Group] - 3-5 Days Time of Disposition: 19:15 Print Language: CAPE [place]DEAN
[2018-01-08] MEDS ORDERED: NORCO 5/325 PO ONE (16:53)
--- NOTE | 2018-01-08 18:32 | XRay Report ---
FINAL REPORT EXAM: XR CHEST ROUTINE 2V HISTORY: cough and chest tightness TECHNIQUE: Frontal and lateral chest x-ray. PRIORS: 11 July 2017. FINDINGS: Cardiac and mediastinal silhouette within normal limits. Lungs are normally expanded, without significant vascular congestion. No focal consolidation, pleural effusion or apparent pneumothorax. Bony thorax without acute abnormality. IMPRESSION: 1. No acute consolidation.
== END 2018-01-08 19:10 | disposition home or self-care (01) ==
LOC: ED 12:26
DX: H92.01 Otalgia, right ear (principal); J01.10 Acute frontal sinusitis, unspecified; F17.200 Nicotine dependence, unspecified, uncomplicated
CPT/HCPCS: 71046; 99283

== ENCOUNTER 2019-09-08 17:39 | Emergency (ER) | payer BC ==
--- NOTE | 2019-09-08 21:43 | Emergency Department Report ---
HPI - General Chief Complaint: Allergic Reaction Time Seen by Provider: 09/08/19 21:28 ED Past Medical Hx - Past Medical History Previous Medical History?: Yes Hx HIV: Yes Additional medical history: pcp shingles, and meningitis - Surgical History Past Surgical History?: Yes Additional Surgical History: C-Sect X1 - Social History Smoking Status: Current Every Day Smoker Substance Use Type: Alcohol - Medications Home Medications: Home Medications Medication Instructions Recorded Confirmed Last Taken Type Amoxicillin/K Clav Tab [Augmentin 1 tab PO Q12HR #20 tab 10/30/16 Unknown Rx 875 mg] Ciprofloxacin HCl [Ciprofloxacin 500 mg PO Q12HR #20 tab 10/30/16 Unknown Rx TAB] HYDROcodone/APAP 5-325 [[place] 1 each PO Q6HR PRN #15 tablet 10/30/16 Unknown Rx 5/325] Ofloxacin 0.3% [Floxin 0.3% Otic] 10 ml OT BID #1 bottle 10/30/16 Unknown Rx Albuterol INH(or & Nicu Only) 2 puff IH QID PRN #1 inhalation 03/25/17 Unknown Rx [ProAir HFA Inhaler] Azithromycin [Zithromax Z-EDWARD] 250 mg PO DAILY #6 tablet 03/25/17 Unknown Rx Fluticasone [Flonase] 1 spray NS QDAY #1 bottle 03/25/17 Unknown Rx Ibuprofen [Motrin 800 MG tab] 800 mg PO Q8HR PRN #30 tablet 03/25/17 Unknown Rx Ibuprofen 800 mg PO Q8HR PRN #30 tablet 04/18/17 Unknown Rx Neomy/Polymyx B/Hc (Otic) Soln 4 drops OTIC TID #1 bottle 04/18/17 Unknown Rx [Cortisporin (Otic) Soln] Amoxicillin/K Clav Tab [Augmentin 1 tab PO Q12HR #20 tab 05/30/17 Unknown Rx 875 mg] Ofloxacin 0.3% [Floxin 0.3% Otic] 10 ml OT BID 7 Days bottle 05/30/17 Unknown Rx Sulfamethoxazole/Trimethoprim 1 each PO BID #14 tablet 05/30/17 Unknown Rx [Bactrim DS TAB] Amoxicillin/Potassium Clav 1 each PO BID 5 Days #10 tablet 01/08/18 Unknown Rx [Augmentin 875-125 Tablet] Fluticasone [Flonase] 1 spray NS QDAY #1 bottle 01/08/18 Unknown Rx Guaifenesin/Pseudoephedrne HCl 1 tab PO BID #10 tab 01/08/18 Unknown Rx [Mucinex D ER 1,200-120 mg Tab] Ibuprofen [Motrin 800 MG tab] 800 mg PO Q8HR PRN #20 tablet 01/08/18 Unknown Rx ED Review of Systems ROS: Stated complaint: RASH ON BODY/TROUBLE BREATHING Other details as noted in HPI Physical Exam - Physical Exam Vital Signs: Vital Signs 09/08/19 17:47 Temperature 98.4 F Pulse Rate 90 Respiratory 20 Rate Blood Pressure 137/94 O2 Sat by Pulse 97 Oximetry ED Course Vital Signs 09/08/19 17:47 Temperature 98.4 F Pulse Rate 90 Respiratory 20 Rate Blood Pressure 137/94 O2 Sat by Pulse 97 Oximetry Critical care attestation.: If time is entered above; I have spent that time in minutes in the direct care of this critically ill patient, excluding procedure time. ED Disposition Condition: Stable Referrals: PRIMARY CARE, [Primary Care Provider] - 3-5 Days
[2019-09-08] MEDS ORDERED: hydrOXYzine PAMOATE 25 MG CAP PO ONE (22:08)
--- NOTE | 2019-09-08 22:14 | Emergency Department Report ---
ED Rash HPI - HPI Chief Complaint: Allergic Reaction Stated Complaint: RASH ON BODY/TROUBLE BREATHING Time Seen by Provider: 09/08/19 21:28 Rash Symptoms: Yes Itching, No Facial Swelling, No Tongue/Oral Swelling, No Breathing Difficulties, No Choking Sensation, No Wheezing/Dyspnea, No Peeling, No Blistering, No Fever, No Lightheaded, No Malaise, No Myalgias Severity: moderate, severe Other History: 38-year-old female patient with history of HIV presents with complaints of generalized itchy rash yesterday. She states Benadryl is not helping. She denies any changes in her products, new medications, new foods, or hotel stays. Patient states the rash began when her mother returned from being admitted from the hospital. She also denies any pain. ED Review of Systems ROS: Stated complaint: RASH ON BODY/TROUBLE BREATHING Other details as noted in HPI Constitutional: denies: chills, diaphoresis, fever, malaise Respiratory: denies: cough, shortness of breath Cardiovascular: denies: chest pain Gastrointestinal: denies: nausea, vomiting Skin: rash, pruritus. denies: change in color Neurological: denies: headache ED Past Medical Hx - Past Medical History Previous Medical History?: Yes Hx HIV: Yes Additional medical history: pcp shingles, and meningitis - Surgical History Past Surgical History?: Yes Additional Surgical History: C-Sect X1 - Social History Smoking Status: Current Every Day Smoker Substance Use Type: Alcohol - Medications Home Medications: Home Medications Medication Instructions Recorded Confirmed Last Taken Type Amoxicillin/K Clav Tab [Augmentin 1 tab PO Q12HR #20 tab 10/30/16 Unknown Rx 875 mg] Ciprofloxacin HCl [Ciprofloxacin 500 mg PO Q12HR #20 tab 10/30/16 Unknown Rx TAB] HYDROcodone/APAP 5-325 [[place] 1 each PO Q6HR PRN #15 tablet 10/30/16 Unknown Rx 5/325] Ofloxacin 0.3% [Floxin 0.3% Otic] 10 ml OT BID #1 bottle 10/30/16 Unknown Rx Albuterol INH(or & Nicu Only) 2 puff IH QID PRN #1 inhalation 03/25/17 Unknown Rx [ProAir HFA Inhaler] Azithromycin [Zithromax Z-EDWARD] 250 mg PO DAILY #6 tablet 03/25/17 Unknown Rx Fluticasone [Flonase] 1 spray NS QDAY #1 bottle 03/25/17 Unknown Rx Ibuprofen [Motrin 800 MG tab] 800 mg PO Q8HR PRN #30 tablet 03/25/17 Unknown Rx Ibuprofen 800 mg PO Q8HR PRN #30 tablet 04/18/17 Unknown Rx Neomy/Polymyx B/Hc (Otic) Soln 4 drops OTIC TID #1 bottle 04/18/17 Unknown Rx [Cortisporin (Otic) Soln] Amoxicillin/K Clav Tab [Augmentin 1 tab PO Q12HR #20 tab 05/30/17 Unknown Rx 875 mg] Ofloxacin 0.3% [Floxin 0.3% Otic] 10 ml OT BID 7 Days bottle 05/30/17 Unknown Rx Sulfamethoxazole/Trimethoprim 1 each PO BID #14 tablet 05/30/17 Unknown Rx [Bactrim DS TAB] Amoxicillin/Potassium Clav 1 each PO BID 5 Days #10 tablet 01/08/18 Unknown Rx [Augmentin 875-125 Tablet] Fluticasone [Flonase] 1 spray NS QDAY #1 bottle 01/08/18 Unknown Rx Guaifenesin/Pseudoephedrne HCl 1 tab PO BID #10 tab 01/08/18 Unknown Rx [Mucinex D ER 1,200-120 mg Tab] Ibuprofen [Motrin 800 MG tab] 800 mg PO Q8HR PRN #20 tablet 01/08/18 Unknown Rx Cetirizine HCl [Zyrtec 10mg tab] 10 mg PO QDAY 10 Days #10 tablet 09/08/19 Unknown Rx Permethrin 5% [Acticin 5% CREAM] 1 applicatio TP ONCE #1 tube 09/08/19 Unknown Rx Triamcinolone Acetonide 60 ml TP TID PRN 7 Days #1 tube 09/08/19 Unknown Rx [Triamcinolone 0.1% LOTION] hydrOXYzine HCL [Atarax] 25 mg PO Q6HR PRN #30 tablet 09/08/19 Unknown Rx Rash Exam - Exam General: Vital signs noted. No distress. Alert and acting appropriately. HEENT: No Periorbital Edema, No Conjuctival Injection, No Chemosis, No Perioral Edema, No Tongue Edema, No Uvular Edema, No Compromised Airway, No Drooling Lungs: Yes Good Air Exchange, No Wheezes, No Stridor Heart: Yes Regular Skin: Yes Other (Diffuse mild papular rash noted to face, arms, torso, and minimally on legs. Papules are not linear, however they are noted between the webs of the fingers), No Urticarial Rash, No Excoriations, No Tenderness, No Edema ED Course Vital Signs 09/08/19 17:47 Temperature 98.4 F Pulse Rate 90 Respiratory 20 Rate Blood Pressure 137/94 O2 Sat by Pulse 97 Oximetry ED Medical Decision Making - Medical Decision Making Patient here for diffuse itchy rash x yesterday. Contact dermatitis versus scabies. Patient has HIV and is noncompliant with her antiviral medications. Will avoid oral steroids. Permethrin to be used if treatment for contact dermatitis not working. Recommend follow-up with primary care provider within 2 to 3 days. Discuss strict return precautions in detail patient verbalized understanding. Critical care attestation.: If time is entered above; I have spent that time in minutes in the direct care of this critically ill patient, excluding procedure time. ED Disposition Clinical Impression: Papular rash, generalized Disposition: DC-01 TO HOME OR SELFCARE Is pt being admited?: No Condition: Stable Instructions: Contact Dermatitis (ED), Scabies (ED) Prescriptions: Permethrin 5% [Acticin 5% CREAM] 1 applicatio TP ONCE #1 tube hydrOXYzine HCL [Atarax] 25 mg PO Q6HR PRN #30 tablet PRN Reason: Itching Triamcinolone Acetonide [Triamcinolone 0.1% LOTION] 60 ml TP TID PRN 7 Days #1 tube PRN Reason: Itching Cetirizine HCl [Zyrtec 10mg tab] 10 mg PO QDAY 10 Days #10 tablet Referrals: PRIMARY CARE, [Primary Care Provider] - 2-3 Days
[2019-09-09 01:19] VITALS: BP 139/73
== END 2019-09-08 22:45 | disposition home or self-care (01) ==
LOC: ED 17:39
DX: R23.8 Other skin changes (principal); F17.200 Nicotine dependence, unspecified, uncomplicated; Z21 Asymptomatic human immunodeficiency virus [HIV] infection status; Z98.890 Other specified postprocedural states; Z79.899 Other long term (current) drug therapy
CPT/HCPCS: 99282; Q0177

== ENCOUNTER 2019-09-10 09:47 | Emergency (ER) | payer BC ==
[2019-09-10 10:16] VITALS: BP 125/87
[2019-09-10] MEDS ORDERED: SODIUM CHLORIDE 0.9% 1000 ML 1,000 ML IV ONE (10:28)
--- NOTE | 2019-09-10 10:28 | Emergency Department Report ---
ED General Adult HPI - General Chief complaint: Skin Rash Stated complaint: RASH Time Seen by Provider: 09/10/19 10:17 Source: patient Mode of arrival: Ambulatory Limitations: No Limitations - History of Present Illness Initial comments: Patient is a 38-year-old female comes to the ER with a generalized rash. She was seen here on Monday for the same and treated for scabies. Patient has a history of HIV and the rash is worsening. Rash is generalized red/purple in appearance. It crosses midline. There are no oral lesions. There are no ocular lesions. Patient states that she did the promethazine and cleaned her home. Nobody else in the home has the rash. Given her history of HIV I am concerned for HIV HIV related cutaneous response. Patient has had HIV for numerous years but has not taken medications because she lost her insurance. She has no fever. No systemic symptoms. No chills. No chest pain no shortness of breath. - Related Data Previous Rx's Medication Instructions Recorded Last Taken Type Permethrin 5% [Acticin 5% CREAM] 1 applicatio TP ONCE #1 tube 09/08/19 Unknown Rx hydrOXYzine HCL [Atarax] 25 mg PO Q6HR PRN #30 tablet 09/08/19 Unknown Rx Acyclovir [Zovirax Tab] 800 mg PO Q12H #20 tab 09/10/19 Unknown Rx Sulfamethoxazole/Trimethoprim 1 each PO BID #10 tablet 09/10/19 Unknown Rx [Bactrim DS TAB] Allergies Allergy/AdvReac Type Severity Reaction Status Date / Time No Known Allergies Allergy Unverified 10/29/16 23:57 ED Review of Systems ROS: Stated complaint: RASH Other details as noted in HPI Comment: All other systems reviewed and negative ED Past Medical Hx - Past Medical History Previous Medical History?: Yes Hx HIV: Yes Additional medical history: pcp shingles, and meningitis - Surgical History Past Surgical History?: Yes Additional Surgical History: C-Sect X1 - Family History Family history: no significant - Social History Smoking Status: Current Every Day Smoker Substance Use Type: None - Medications Home Medications: Home Medications Medication Instructions Recorded Confirmed Last Taken Type Permethrin 5% [Acticin 5% CREAM] 1 applicatio TP ONCE #1 tube 09/08/19 Unknown Rx hydrOXYzine HCL [Atarax] 25 mg PO Q6HR PRN #30 tablet 09/08/19 Unknown Rx Acyclovir [Zovirax Tab] 800 mg PO Q12H #20 tab 09/10/19 Unknown Rx Sulfamethoxazole/Trimethoprim 1 each PO BID #10 tablet 09/10/19 Unknown Rx [Bactrim DS TAB] ED Physical Exam - General Limitations: No Limitations General appearance: alert, in no apparent distress - Head Head exam: Present: atraumatic, normocephalic - Eye Eye exam: Present: normal appearance - ENT ENT exam: Present: mucous membranes moist - Neck Neck exam: Present: normal inspection - Respiratory Respiratory exam: Present: normal lung sounds bilaterally. Absent: respiratory distress - Cardiovascular Cardiovascular Exam: Present: regular rate, normal rhythm. Absent: systolic murmur, diastolic murmur, rubs, gallop - GI/Abdominal GI/Abdominal exam: Present: soft, normal bowel sounds - Extremities Exam Extremities exam: Present: normal inspection - Back Exam Back exam: Present: normal inspection - Neurological Exam Neurological exam: Present: alert, oriented X3 - Psychiatric Psychiatric exam: Present: normal affect, normal mood - Skin Skin exam: Present: warm, dry, intact, other. Absent: rash ED Course Vital Signs 09/10/19 09/10/19 09:53 14:06 Temperature 97.9 F Pulse Rate 94 H Respiratory 18 18 Rate Blood Pressure 125/87 O2 Sat by Pulse 98 Oximetry ED Medical Decision Making - Lab Data Result diagrams: 09/10/19 10:30 09/10/19 10:30 - Radiology Data Radiology results: report reviewed, image reviewed - Medical Decision Making Labs 09/10/19 09/10/19 09/10/19 10:30 10:30 11:11 WBC 4.8 RBC 4.51 Hgb 13.5 Hct 39.9 MCV 88 MCH 30 MCHC 34 RDW 13.2 Plt Count 141 Lymph % (Auto) 12.9 L [place] % (Auto) 4.2 Eos % (Auto) 1.7 Baso % (Auto) 0.1 Lymph # 0.6 L [place] # 0.2 Eos # 0.1 Baso # 0.0 Seg Neutrophils % 81.1 H Seg Neutrophils # 3.9 Sodium 138 Potassium 4.2 Chloride 100.6 Carbon Dioxide 24 Anion Gap 18 BUN 13 Creatinine 0.5 L Estimated GFR > 60 BUN/Creatinine Ratio 26 Glucose 92 Calcium 9.7 Total Bilirubin 0.30 AST 19 ALT 15 Alkaline Phosphatase 67 C-Reactive Protein 0.20 Total Protein 7.9 Albumin 4.2 Albumin/Globulin Ratio 1.1 Urine Color Urine Turbidity Urine pH Ur Specific [place] Urine Protein Urine Glucose (UA) Urine Ketones Urine Blood Urine Nitrite Ur Reducing Substances Urine Bilirubin Urine Ictotest Urine Urobilinogen Ur Leukocyte Esterase Urine WBC (Auto) Urine RBC (Auto) U Epithel Cells (Auto) Urine Bacteria (Auto) Urine Mucus Urine HCG, Qual 09/10/19 13:19 WBC RBC Hgb Hct MCV MCH MCHC RDW Plt Count Lymph % (Auto) [place] % (Auto) Eos % (Auto) Baso % (Auto) Lymph # [place] # Eos # Baso # Seg Neutrophils % Seg Neutrophils # Sodium Potassium Chloride Carbon Dioxide Anion Gap BUN Creatinine Estimated GFR BUN/Creatinine Ratio Glucose Calcium Total Bilirubin AST ALT Alkaline Phosphatase C-Reactive Protein Total Protein Albumin Albumin/Globulin Ratio Urine Color Yellow Urine Turbidity Slightly-cloudy Urine pH 7.0 Ur Specific [place] 1.005 Urine Protein <15 mg/dl Urine Glucose (UA) Neg Urine Ketones Neg Urine Blood Lg Urine Nitrite Neg Ur Reducing Substances Not Reportable Urine Bilirubin Neg Urine Ictotest Not Reportable Urine Urobilinogen < 2.0 Ur Leukocyte Esterase Lg Urine WBC (Auto) 4.0 Urine RBC (Auto) 1.0 U Epithel Cells (Auto) 4.0 Urine Bacteria (Auto) 1+ Urine Mucus Few Urine HCG, Qual Negative Vital Signs 09/10/19 09/10/19 09:53 14:06 Temperature 97.9 F Pulse Rate 94 H Respiratory 18 18 Rate Blood Pressure 125/87 O2 Sat by Pulse 98 Oximetry X-ray noted. Labs noted. UA noted Dr. Vergara called to the bedside to examine the patient. Patient being discharged to home with ID follow-up on acyclovir and Bactrim. Patient understands the importance of follow-up given her HIV. A CD4 count has been sent but it is a send out and will not be back today. Critical care attestation.: If time is entered above; I have spent that time in minutes in the direct care of this critically ill patient, excluding procedure time. ED Disposition Clinical Impression: HIV (human immunodeficiency virus infection), Generalized rash, UTI (urinary tract infection) Disposition: - TO HOME OR SELFCARE Is pt being admited?: No Does the pt Need Aspirin: No Condition: Stable Additional Instructions: meds as ordered follow up with ID MD TINAJERO we sent a viral load they can call here and get results Prescriptions: Sulfamethoxazole/Trimethoprim [Bactrim DS TAB] 1 each PO BID #10 tablet Acyclovir [Zovirax Tab] 800 mg PO Q12H #20 tab Referrals: VEDA WATERMAN MD [Staff Physician] - 3-5 Days MILTON SMITH MD [Staff Physician] - 3-5 Days CLEMENTINA SOLORZANO MD [Staff Physician] - 3-5 Days [facility] [Outside] - 3-5 Days Time of Disposition: 14:54
[2019-09-10] MEDS ORDERED: diphenhydrAMINE 50 MG/ML VIAL IV ONE (10:29)
[2019-09-10 10:48] LABS: Basophils % (Auto) 0.1 % (0.0-1.8); Eosinophils # (Auto) 0.1 K/mm3 (0.0-0.4); Eosinophils % (Auto) 1.7 % (0.0-4.3); Hematocrit 39.9 % (30.3-42.9); Hemoglobin 13.5 gm/dl (10.1-14.3); Lymphocytes # (Auto) 0.6 K/mm3 (1.2-5.4); Lymphocytes % (Auto) 12.9 % (13.4-35.0); Mean Corpuscular HGB Conc 34 % (30-34); Mean Corpuscular Volume 88 fl (79-97); Monocytes # (Auto) 0.2 K/mm3 (0.0-0.8); Monocytes % (Auto) 4.2 % (0.0-7.3); Platelet Count 141 K/mm3 (140-440); Red Blood Count 4.51 M/mm3 (3.65-5.03); Red Cell Distribution Width 13.2 % (13.2-15.2)
[2019-09-10 11:12] LABS: Alanine Aminotransferase 15 units/L (7-56); Albumin 4.2 g/dL (3.9-5); BUN/Creatinine Ratio 26; Blood Urea Nitrogen 13 mg/dL (7-17); Calcium 9.7 mg/dL (8.4-10.2); Hemolysis Index 8
[2019-09-10 13:42] LABS: HCG Qualitative,Urine Negative (Negative)
[2019-09-10] MEDS ORDERED: hydrOXYzine HCL 25 MG TAB PO ONE (13:49)
[2019-09-10] MEDS ORDERED: HYDROcodone/ACETAMINOPHEN 5-325 MG TAB PO ONE (13:50)
[2019-09-10 13:58] LABS: Bacteria,Urine 1+ /HPF (Negative); Bilirubin,Urine NEG (Negative); Blood,Urine LG (Negative); Color,Urine Yellow (Yellow); Mucus,Urine FEW /HPF; Protein,Urine <15 mg/dL mg/dL (Negative); Urobilinogen,Urine < 2.0 mg/dL (<2.0)
[2019-09-10] MEDS ORDERED: SULFAMETHOXAZOLE/TRIMETHOPRIM 800/160MG DS TAB PO ONE (14:18)
[2019-09-10] MEDS ORDERED: dexAMETHasone 4 MG/ML VIAL IM ONE (14:18)
--- NOTE | 2019-09-10 14:22 | XRay Report ---
CHEST PA AND LATERAL VIEWS INDICATION: weak/hiv/off meds. COMPARISON: 01/08/2018 FINDINGS: Support devices: None. Heart: Within normal limits. Lungs/Pleura: No acute pulmonary or pleural findings. IMPRESSION: 1. No acute findings. Signer Name: Golden Chase MD Signed: 09/10/2019 2:17 PM Workstation Name: [id number]
== END 2019-09-10 15:18 | disposition home or self-care (01) ==
LOC: ED 09:47
DX: B20 Human immunodeficiency virus [HIV] disease (principal); R21 Rash and other nonspecific skin eruption; N39.0 Urinary tract infection, site not specified; F17.200 Nicotine dependence, unspecified, uncomplicated; Z98.890 Other specified postprocedural states; Z79.899 Other long term (current) drug therapy
CPT/HCPCS: 36415; 71046; 80053; 81001; 81025; 82024; 85025; 86140; 96361; 96372; 96374; 99284; J1100; J1200; J7030